=== PATIENT | male | born 1940 | race Two or more races ===

== ENCOUNTER 2018-08-23 15:22 | Inpatient (IN) | payer OTHER ==
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
[2018-08-23 15:57] LABS: PLATELET COUNT 218 10^3/uL (150-400)
[2018-08-23] MEDS ORDERED: IOPAMIDOL (ISOVUE-300) 100 ML BTL ONE (16:09)
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
[2018-08-23] MEDS ORDERED: ZOLPIDEM TARTRATE 5 MG TAB PO PRN (20:07)
[2018-08-23] MEDS ORDERED: ONDANSETRON 4 MG/2 ML VIAL IVP PRN (20:07)
[2018-08-23] MEDS ORDERED: NS 1,000 ML IV ONE (20:07)
[2018-08-23] MEDS ORDERED: ACETAMINOPHEN 325 MG TAB PO PRN (20:07)
[2018-08-23] MEDS ORDERED: NS 1,000 ML IV SCH (20:15)
[2018-08-23] MEDS: PANTOPRAZOLE SODIUM 40 MG TAB PO SCH (21:18)
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
[2018-08-24] MEDS: MELATONIN 3 MG TAB PO SCH ×2 (00:23→22:59)
[2018-08-24 05:11] LABS: PLATELET COUNT 177 10^3/uL (150-400)
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
[2018-08-24] MEDS: ENOXAPARIN 40 MG/0.4 ML SYR SC SCH (10:37)
[2018-08-24] MEDS: PANTOPRAZOLE SODIUM 40 MG TAB PO SCH ×2 (10:37→20:53)
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
[2018-08-24] MEDS: LIDOCAINE 4%/MENTHOL 1% PATCH TD SCH (14:06)
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
[2018-08-24] MEDS: PATCH REMOVAL 1 EA PATCH TD SCH (19:19)
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
[2018-08-25] MEDS: PANTOPRAZOLE SODIUM 40 MG TAB PO SCH ×4 (10:41→20:15)
[2018-08-25] MEDS: LIDOCAINE 4%/MENTHOL 1% PATCH TD SCH (10:41)
[2018-08-25] MEDS: ENOXAPARIN 40 MG/0.4 ML SYR SC SCH (10:41)
[2018-08-25] MEDS: traMADol 50 MG TAB PO PRN ×2 (10:53→17:26)
--- NOTE | 2018-08-25 13:17 | HOSPPROG ---
Hospitalist Progress Note Assessment/Plan: # dysphagia - minimal dysphagia on video swallow - unclear if d/t neck pain or physiatric distress # C7 transverse process and facet joint fx - MRI c-spine ordered to eval; triceps weak - nsg following # T4 compression fx # paranoia - discussed with dtr; will start zyprexa which should also stimulate appetite # dehydration - d/t poor PO intake # weakness - PT recs HC # atrial fibrillation - not on meds # CAD - seen on CT - asa when cleared by nsg - check lipids tomorrow # weight loss - poor PO intake Subjective: seen with car oiler. his dtr explains he has become very paranoid over the last 10 years, and that his explanations mix his true physical findings with some delusions Objective: Vital Signs Temp Pulse Resp BP Pulse Ox 36.7 C 57 L 14 150/87 H 96 08/25/18 12:00 08/25/18 12:00 08/25/18 12:00 08/25/18 12:00 08/25/18 12:00 Laboratory Results 08/24/18 04:30 08/25/18 04:21 08/24/18 08/25/18 08/26/18 05:59 05:59 05:59 Intake Total 1775 Balance 1775 CTs reviewed chart reviewed - Physical Exam Constitutional: no apparent distress, appears nourished Ears, Nose, Mouth, Throat: other (c-collar) Cardiovascular: systolic murmur, irregularly irregular, No diastolic murmur, No JVD Respiratory: no respiratory distress, no rales or rhonchi, clear to auscultation Gastrointestinal: soft, non-tender abdomen, no palpable masses, No guarding, No rebound, No distension ICD10 Worksheet Patient Problems: Problems Problem Status Onset Altered mental status Acute Atrial fibrillation Acute Hypertension Acute Compression fx, thoracic spine Acute Cervical transverse process fracture Acute Gastric ulcer Acute Dysphagia Acute Weakness Acute
--- NOTE | 2018-08-25 15:57 | ASMTCMCOM ---
CM Note CM Note Notes: PT continues to rec HHC, pt and dghtr Megha agreeable. Referral sent to [facility] provider [facility]. Megha reports she cannot find her MDPOA so we completed a new one today (copy in chart) listing pt dghtrs Megha and Leana MDPJANICE. Megha reports she has had concerns about pt ability to reside alone for some time, she does not want to look into assisted living quite yet stating she thinks with skilled HC and her support pt will be safe discharging home for now. D/c plan: Home with [facility] and family support Date Signed: 08/25/2018 03:54 PM Electronically Signed By:HERIBERTO Barragan
[2018-08-25] MEDS ORDERED: PROTOCOL POTASSIUM 1 DOSE MISC PRN (18:15)
[2018-08-25] MEDS ORDERED: POTASSIUM CL 10 MEQ TAB PO ONE (19:11)
[2018-08-25] MEDS ORDERED: POTASSIUM CL 20 MEQ/15 ML UDCUP PO ONE (19:15)
[2018-08-25] MEDS: MELATONIN 3 MG TAB PO SCH (20:52)
[2018-08-25] MEDS ORDERED: OLANZapine DISINTEGR 5 MG TAB PO SCH (21:00)
[2018-08-25] MEDS: PATCH REMOVAL 1 EA PATCH TD SCH (21:00)
--- NOTE | 2018-08-26 07:37 | NEUSURGPN ---
Assessment/Plan: 78 yo male with right C7 facet fracture and T4 compression fracture MRI C-spine reviewed by Dr. Medrano. - neuro stable - pain control. If having uncontrolled radicular pain, may try Gabapentin - wear cervical hard collar at all times, COP WINDER brace when out of bed - PT/OT - no surgical intervention - stable from neurosurgery standpoint for discharge Discussed with Dr. Medrano. Subjective: Having neck pain. Objective: Awake. Alert. Following commands Moving all extremities - Physician Discussed Patient with Dr.: Other (Dr. Medrano) Neurosurgery Physical Exam - Vitals, I&O, Labs I and O 08/25/18 08/26/18 08/27/18 05:59 05:59 05:59 Intake Total 1775 200 Output Total 200 Balance 1775 0 Intake: Oral (ml) 250 200 IV Intake (ml) 1225 IV Infused (ml) 300 Ns 1,000 ml @ 100 mls/hr 300 IV CONT SHERRILL Rx#: [id number] Output: Urine (ml) 200 Toilet 200 Other: Intake Quantity Yes Sufficient Number of Voids Toilet 1 1 Post Void Residual Scan Volume (ml) Toilet 0 Vital Signs Temp Pulse Resp BP Pulse Ox 36.3 C 51 L 16 148/73 H 97 08/26/18 04:00 08/26/18 04:00 08/26/18 04:00 08/26/18 04:00 08/26/18 04:00 Laboratory Results 08/24/18 04:30 08/26/18 04:27 ICD10 Worksheet Patient Problems: Problems Problem Status Onset Cervical transverse process fracture Acute Compression fx, thoracic spine Acute Dysphagia Acute Gastric ulcer Acute Weakness Acute Altered mental status Acute Atrial fibrillation Acute Hypertension Acute
[2018-08-26 08:41] VITALS: BP 171/95
[2018-08-26] MEDS: LIDOCAINE 4%/MENTHOL 1% PATCH TD SCH (09:23)
[2018-08-26] MEDS: ENOXAPARIN 40 MG/0.4 ML SYR SC SCH (09:23)
[2018-08-26] MEDS: traMADol 50 MG TAB PO PRN (09:24)
[2018-08-26] MEDS ORDERED: POTASSIUM CL 10 MEQ TAB PO ONE (09:39)
--- NOTE | 2018-08-26 13:04 | PDIAF ---
- Diagnosis Diagnosis: Cervical pain - Medication Management Discharge Medications: electronically signed and located in the Home Medication List. - Orders Diet Recommendation: no restrictions on diet Diet Texture: Thin Liquids Additional Instructions: -wear collar in bed at all times if KITCHEN CHEF not tolerated -KITCHEN CHEF brace on at all times when out of bed -follow up with Dr Alcaraz in 2 weeks for a recheck -call with any questions or concerns - Follow Up Care Current Providers and Referrals: Derian Cantor MD [Medical Doctor] - As per Instructions (ENT referral for throat secretions) Jojo Coronel MD [Primary Care Provider] - As per Instructions Harshal Medrano MD [Medical Doctor] - (2 weeks)
--- NOTE | 2018-08-26 13:46 | PDIAF ---
- Diagnosis Diagnosis: Cervical pain - Medication Management Discharge Medications: electronically signed and located in the Home Medication List. - Orders Services needed: Home Care, Physical Therapy Home Care Face to Face: I certify that this patient was under my care and that I had the required [id number] encounter meeting the encounter requirements on the discharge day. My findings support the fact that the patient is homebound as defined in Home Care Face to Face Continued: CMS Chapter 7 Medicare Benefits Manual 30.1.1 , The condition of the patient is such that there exists a normal inability to leave home and consequently, leaving home would require a considerable and taxing effort. Diet Recommendation: no restrictions on diet Diet Texture: Thin Liquids Additional Instructions: -wear collar in bed at all times if MEMORANDUM STATEMENT CLERK not tolerated -MEMORANDUM STATEMENT CLERK brace on at all times when out of bed -follow up with Dr Alcaraz in 2 weeks for a recheck -call with any questions or concerns - Follow Up Care Current Providers and Referrals: Derian Cantor MD [Medical Doctor] - As per Instructions (ENT referral for throat secretions) Jojo Coronel MD [Primary Care Provider] - As per Instructions Harshal Medrano MD [Medical Doctor] - (2 weeks)
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
--- NOTE | 2018-08-26 14:43 | ASMTLACE ---
LACE Length of stay for Answers: 4-6 days current admission Acuity / Level of Answers: Yes Care: Did the patient have an inpatient admission? Comorbidities - select Answers: Other Notes: HTN all that apply # of Emergency department Answers: 1-2 visits in the last 6 months Score: 9 Date Signed: 08/26/2018 02:43 PM Electronically Signed By:HERIBERTO Barragan
--- NOTE | 2018-08-26 15:04 | ASMTCMCOM ---
CM Note CM Note Notes: Pt medically stable for d/c home to [facility] with [facility] PT and family support. HC orders sent to [facility] in [employer]. [facility] updated pt address is [address] [place] [address] [address] [facility] duty care to provide additional supervision. Pt to follow up with neurosurgery. Date Signed: 08/26/2018 03:03 PM Electronically Signed By:HERIBERTO Barragan
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
== END 2018-08-26 15:33 | disposition home health service (06) | DRG 392 ==
LOC: OBSVTOIN 20:09 → F3N 22:16
PROVIDERS: ADMIT Internal Medicine; ATTEND Student in an Organized Health Care Education/Training Program
DX: R13.10 Dysphagia, unspecified (principal); S12.691A Other nondisplaced fracture of seventh cervical vertebra, initial encounter for closed fracture; S22.040A Wedge compression fracture of fourth thoracic vertebra, initial encounter for closed fracture; E86.0 Dehydration; R53.1 Weakness; V49.50XA Passenger injured in collision with unspecified motor vehicles in traffic accident, initial encounter; Y92.9 Unspecified place or not applicable; Y93.9 Activity, unspecified; F01.50 Vascular dementia, unspecified severity, without behavioral disturbance, psychotic disturbance, mood disturbance, and anxiety; I48.91 Unspecified atrial fibrillation; I25.10 Atherosclerotic heart disease of native coronary artery without angina pectoris; R63.4 Abnormal weight loss; M48.061 Spinal stenosis, lumbar region without neurogenic claudication; M48.07 Spinal stenosis, lumbosacral region; M48.02 Spinal stenosis, cervical region; Z91.81 History of falling
CPT/HCPCS: 82435-PO; 82565-PO; 82947-PO; 84132-PO; 84295-PO; 84520-PO; 85014-ER; 92610-GN; 92611-GN; 97116-GP; 97162-GP; 97166-GO; 97530-GP; J1650; Q9967

== ENCOUNTER 2018-10-14 13:22 | Day surgery (SDC) | payer OTHER ==
[2018-10-14] MEDS ORDERED: BENZOCAINE UNIT DOSE SPRAY HURRICAINE MM ONE (13:28)
[2018-10-14] MEDS ORDERED: MIDAZOLAM 2 MG/2 ML VIAL IVP ONE (13:28)
[2018-10-14] MEDS ORDERED: fentaNYL 100 MCG/2 ML INJ IVP ONE (13:28)
[2018-10-14] MEDS ORDERED: NS 500 ML IV ONE (13:28)
--- NOTE | 2018-10-14 15:03 | PDHPUP ---
History & Physical Update H&P update statement: This history and physical update is based on an assessment of the patient which was completed after admission or registration (within 24 hours), but prior to the surgery/procedure. H&P update: H&P reviewed & patient examined, no change in patient's condition since H&P completed
[2018-10-14] MEDS ORDERED: PROPOFOL 200 MG/20 ML VIAL ONE (15:27)
--- NOTE | 2018-10-14 15:31 | PDANEPAE ---
ANE Past Medical History - Cardiovascular History Hx Hypertension: Yes Hx Arrhythmias: Yes Hx Coronary Artery / Peripheral Vascular Disease: Yes - Pulmonary History Hx Oxygen in Use at Home: No Hx Sleep Apnea: No - Endocrine History Hx Diabetes: No - Neurological & Psychiatric Hx Hx Neurological and Psychiatric Disorders: Yes - Chronic Pain History Chronic Pain: No ANE Review of Systems Review of Systems: ANE Patient History - Allergies Allergies/Adverse Reactions: Penicillins Allergy (Severe, Verified 08/23/18 20:49) Rash - Smoking Hx Smoking Status: Former smoker ANE Labs/Vital Signs - Vital Signs Height: 175.26 cm Weight: 92.986 kg ANE Physical Exam - Airway Mallampati Score: Class 2 - ASA Status ASA Status: III ANE Anesthesia Plan Total IV Anesthesia: Yes
[2018-10-14] MEDS ORDERED: NALOXONE HCL 0.4 MG/ML INJ IVP PRN (15:52)
--- NOTE | 2018-10-14 15:53 | POSTANESTH ---
Post Anesthetic Evaluation Cardiovascular Status: Similar to Pre-Op Cond Respiratory Status: Normal, Stable Level of Consciousness/Mental Status: Can Participate in Eval Pain Control: Adequate, Prn Tx Ordered Nausea/Vomiting Control: Adequate, Prn Tx Ordered Complications Possibly Related to Anesthesia: None Noted
--- NOTE | 2018-10-14 17:41 | ECHO ---
[email or web address] [place] [id number] Main: [phone] Echocardiography Examination Transesophageal Name: BESSY BALLESTEROS MR#: [id number] Study Date: 10/14/2018 Study Time: 02:52 PM Date of : 1940 Age: 78 year(s) Height: ( ) Weight: ( ) BSA: Gender: Male Examination: JOEY Contrast: Image Quality: Adequate Rhythm: Heart Rate: BP: / Indication: Pre Watchman Procedure Staff Referring Physician: Claims Adjuster Crop: Cristal Monson [facility] Reading Physician: Nancy Felipe MD Requesting Provider: Ordering Physician: Nancy Felipe MD Indication: Pre Watchman Acute complication: None Measurements Chambers AV/MV Label Value Normal Value Label Value Normal Value AV PGmax 26 mmHg AV PGmean 15 mmHg AV Vmax 2.53 m/s TV/PV Label Value Normal Value RA Pressure 5 mmHg RVSP 39 mmHg TR Pmax 34 mmHg TR Vmax 2.91 m/s Conclusions 1. Normal LV systolic function with normal wall motion. Ejection fraction 60%. 2. There is no thrombus in left atrial appendage. The morphology of the left atrial appendage is single lobed with measurements detailed below. 3. Negative bubble study. 4. Mild aortic regurgitation mild aortic stenosis. 5. Mild mitral regurgitation. 6. Moderate tricuspid regurgitation with top-normal estimated PA systolic pressure at 39 mm of mercury. Patient: BESSY BALLESTEROS Study Date: 10/14/2018 Page 1 of 2 02:52 PM 7. Mild atheroma visualized in the descending aorta Findings Left Ventricle: Normal global systolic left ventricular function. Left Atrium: At 45 degrees, the LAYO measures 1.5 by 2.4 cm. At 135 degrees, the LAYO measures 1.7 by 1.9 cm. At 90 degrees, the LAYO measures 1.5 by 1.7 cm. At 0 degrees, the LAYO measures 1.5 by 1.8 cm.. Left Atrium Appendage: Good color flow doppler in the left atrial appendage. No thrombus is identified. IAS: An agitated saline study was performed and was negative for intracardiac shunting. Mitral Valve: Mitral valve appears structurally normal. Mild mitral regurgitation. Aortic Valve: Mild aortic regurgitation is present. There is mild aortic stenosis. Aortic leaflets exhibit mild calcification. Tricuspid Valve: Tricuspid valve leaflets are structurally normal. Moderate tricuspid regurgitation. Right Ventricular systolic pressure is measured at 39 mmHg. Pulmonic Valve: Pulmonic leaflets are structurally normal. No significant pulmonic valve regurgitation is evident. Aorta: Mild atheroma in the descending aorta. Pericardium: No pericardial effusion. Exam Details Procedure Ordered: JOEY Procedure Status: Routine study Image Quality: Adequate Consent: Risks, alternatives of procedure explained to patient, informed consent obtained Probe Insertion: Attending philosophy specialist Facility Location: CVC/Recovery (No Signature Object) Patient: BESSY BALLESTEROS Study Date: 10/14/2018 Page 2 of 2 02:52 PM [id number]
== END 2018-10-14 16:56 | disposition home or self-care (01) ==
LOC: FCATH 13:22
PROVIDERS: ATTEND Internal Medicine Cardiovascular Disease
PROC: B245ZZ4 Ultrasonography of Left Heart, Transesophageal (ICD-10-PCS; principal; 2018-10-14)
DX: Z01.810 Encounter for preprocedural cardiovascular examination (principal); I48.91 Unspecified atrial fibrillation; I35.9 Nonrheumatic aortic valve disorder, unspecified; I10 Essential (primary) hypertension; Z86.73 Personal history of transient ischemic attack (TIA), and cerebral infarction without residual deficits
CPT/HCPCS: J2704